=== PATIENT | female | born 2000 | race Caucasian/White ===

== ENCOUNTER 2018-02-16 10:56 | Emergency (ER) | payer OTHER ==
[2018-02-16] MEDS ORDERED: SODIUM CHLORIDE 0.9% 1,000 ML IV ONE (11:12)
[2018-02-16] MEDS ORDERED: METOCLOPRAMIDE 5 MG/ML 2 ML VIAL IVP STA (11:12)
[2018-02-16] MEDS ORDERED: FAMOTIDINE 20 MG/2 ML VIAL IV STA (11:13)
[2018-02-16] MEDS ORDERED: diphenhydrAMINE 50 MG/ML 1 ML VIAL IVP STA (11:13)
--- NOTE | 2018-02-16 11:18 | ED ---
Abdominal Pain HPI - General Chief Complaint: Abdominal Pain Stated Complaint: abd pain Time Seen by Provider: 02/16/18 11:06 Source: patient Mode of arrival: ambulatory Limitations: no limitations - History of Present Illness Initial Comments: 17-year-old female presenting with nausea, vomiting epigastric, abdominal pain that began suddenly last night at 2 AM, has been constant since, is not alleviated or exacerbated by anything, and was accompanied by nausea and vomiting. Patient states she was also feeling constipated and did a water enema at home which helped her have a small bowel movement. [facility] was seen at [facility] who was concern for bowel obstruction however the patient has no history of abdominal surgeries or bowel obstructions and she is currently passing gas and had a bowel movement yesterday. She denies any fevers but admits to chills. Denies any urinary symptoms, vaginal bleeding, vaginal discharge. Last menstrual period was one month prior. Patient admits to similar episodes in the past that resolved spontaneously. - Related Data Home Medications Medication Instructions Recorded Confirmed Amoxicillin 2 tab PO DAILY 09/12/15 09/12/15 Previous Rx's Medication Instructions Recorded predniSONE 40 mg PO DAILY #6 tab 09/12/15 Metoclopramide [Reglan] 10 mg PO Q8HR PRN #30 tab 02/16/18 Ondansetron Odt [Zofran ODT] 4 mg PO Q12HR PRN #20 tab 02/16/18 Allergies Allergy/AdvReac Type Severity Reaction Status Date / Time codeine AdvReac Unknown Verified 02/16/18 11:03 Review of Systems ROS Statement: Those systems with pertinent positive or pertinent negative responses have been documented in the HPI. Review of Systems Constitutional: Denies fever, chills Eyes: Denies change in vision, Denies pain Ears, nose, mouth, throat: Denies headaches, Denies sore throat Cardiovascular: Denies chest pain. Denies palpitations Respiratory: Denies shortness of breath, Denies cough Gastrointestinal: Positive abdominal pain. Positive nausea, vomiting. Negative diarrhea. Genitourinary: Denies hematuria, Denies infections Musculoskeletal: Denies pain, Denies swelling Integumentary: Denies rash Neurological: Denies headache, focal weakness, focal numbness Psychiatric: Denies anxiety, Denies depression Hematologic/Lymphatic: Denies easy bleeding or bruising ROS Other: All systems not noted in ROS Statement are negative. Past Medical History Past Medical History: No Reported History History of Any Multi-Drug Resistant Organisms: None Reported Past Surgical History: No Surgical Hx Reported Past Psychological History: No Psychological Hx Reported Smoking Status: Never smoker Past Alcohol Use History: None Reported Past Drug Use History: None Reported General Exam - General Exam Comments Initial Comments: General: Awake, alert, No acute Distress HENT: Normocephalic. Atraumatic Eyes: PERRL. EOMI. No scleral icterus. No injected conjunctiva Neck: Full ROM Chest/Lungs: Clear to auscultation bilaterally. No wheezing, rhonchi, or rales Cardiac: Regular rate, rhythm. No murmurs or rubs Abdomen/GI: Soft, nontender, nondistended. No rebound, guarding, or rigidity. Negative Kang's. Negative McBurney's. Musculoskeletal: Full ROM Skin: Warm, dry, intact Neurologic: A/Ox3, no weakness, no sensory deficit, no abdnormal gait, no coordination deficit Limitations: no limitations Course Vital Signs 02/16/18 02/16/18 11:01 12:23 Temperature 97.8 F Pulse Rate 68 67 Respiratory 20 18 Rate Blood Pressure 109/57 119/88 O2 Sat by Pulse 100 98 Oximetry Medical Decision Making - Medical Decision Making 16-year-old female presenting with abdominal pain nausea and vomiting. Initial exam the patient is awake, alert, no acute distress. VSS. Patient has no abdominal tenderness on exam however she was given Toradol and Zofran at [facility]. The patient had a UA done there which showed a large amount of ketones but was negative for infection. Discussed with the patient low likelihood of bowel obstruction and that the risk of radiation at this point outweighs the benefit as the patient is passing gas, had a bowel movement, and is currently tolerating by mouth. Bowel obstruction unlikely at this time. 1404 Patient's laboratory workup revealed a mild leukocytosis but otherwise is negative for acute process. A UA was not repeated here. Her ultrasound and x- ray showed no acute process. The patient in no distress while in the emergency department. At this time the patient's symptoms are likely due to gastroenteritis and a possible mild ileus that the symptoms resolved. I instructed her to continue taking the omeprazole that was prescribed to her at [facility]. I will send her home with prescriptions for Reglan and Zofran ODT. No further emergent workup indicated. The patient was given return to ED instructions. They were instructed to follow up with their primary care provider. Stable for discharge at this time. - Lab Data Result diagrams: 02/16/18 12:00 02/16/18 12:00 Lab Results 02/16/18 02/16/18 Range/Units 12:00 12:00 WBC 14.2 H (4.0-11.0) k/uL RBC 4.24 (3.80-5.40) m/uL Hgb 12.1 (11.4-16.0) gm/dL Hct 37.3 (34.0-46.0) % MCV 88.1 (80.0-100.0) fL MCH 28.6 (25.0-35.0) pg MCHC 32.4 (31.0-37.0) g/dL RDW 12.4 (11.5-15.5) % Plt Count 207 (150-450) k/uL Neutrophils % 92 % Lymphocytes % 4 % Monocytes % 3 % Eosinophils % 0 % Basophils % 0 % Neutrophils # 13.0 H (1.3-7.7) k/uL Lymphocytes # 0.6 L (1.0-4.8) k/uL Monocytes # 0.5 (0-1.0) k/uL Eosinophils # 0.0 (0-0.7) k/uL Basophils # 0.0 (0-0.2) k/uL Sodium 134 L (137-145) mmol/L Potassium 5.0 (3.5-5.1) mmol/L Chloride 106 (98-107) mmol/L Carbon Dioxide 19 L (22-30) mmol/L Anion Gap 9 mmol/L BUN 9 (7-17) mg/dL Creatinine 0.47 L (0.52-1.04) mg/dL Est GFR (CKD-EPI)AfAm >90 (>60 ml/min/1.73 sqM) Est GFR (CKD-EPI)NonAf >90 (>60 ml/min/1.73 sqM) Glucose 117 H (74-99) mg/dL Calcium 9.0 (8.4-10.2) mg/dL Total Bilirubin 1.1 (0.2-1.3) mg/dL Conjugated Bilirubin 0.0 (0.0-0.3) mg/dL Unconjugated Bilirubin 0.7 (0.0-1.1) mg/dL Delta Bilirubin 0.4 H (0.0-0.2) mg/dL AST 35 (14-36) U/L ALT 24 (9-52) U/L Alkaline Phosphatase 68 (38-126) U/L Total Protein 7.6 (6.3-8.2) g/dL Albumin 4.2 (3.5-5.0) g/dL Lipase 84 (23-300) U/L HCG, Qual Not Detected Disposition Clinical Impression: Nausea and vomiting Disposition: HOME SELF-CARE Condition: Good Instructions: Gastroenteritis (ED), Gastroenteritis (DC) Prescriptions: Metoclopramide [Reglan] 10 mg PO Q8HR PRN #30 tab PRN Reason: Nausea Ondansetron Odt [Zofran ODT] 4 mg PO Q12HR PRN #20 tab PRN Reason: Nausea Is patient prescribed a controlled substance at d/c from ED?: No
[2018-02-16 12:15] LABS: Basophils % (A) 0 %; Eosinophils % (A) 0 %; HCT 37.3 % (34.0-46.0); HGB 12.1 gm/dL (11.4-16.0); Lymphocytes # (A) 0.6 k/uL (1.0-4.8); Lymphocytes % (A) 4 %; MCH 28.6 pg (25.0-35.0); MCHC 32.4 g/dL (31.0-37.0); MCV 88.1 fL (80.0-100.0); Mean Platelet Volume 7.1; Monocytes # (A) 0.5 k/uL (0-1.0); Monocytes % (A) 3 %; Neutrophils % (A) 92 %; Platelet Count 207 k/uL (150-450); RBC 4.24 m/uL (3.80-5.40); RDW 12.4 % (11.5-15.5); WBC 14.2 k/uL (4.0-11.0)
[2018-02-16 12:23] LABS: ALT 24 U/L (9-52); AST 35 U/L (14-36); Albumin 4.2 g/dL (3.5-5.0); Alkaline Phosphatase 68 U/L (38-126); Anion Gap 9 mmol/L; Bilirubin, Delta 0.4 mg/dL (0.0-0.2); Bilirubin,Unconjugated 0.7 mg/dL (0.0-1.1); Blood Urea Nitrogen 9 mg/dL (7-17); Carbon Dioxide 19 mmol/L (22-30); Chloride 106 mmol/L (98-107); Glucose 117 mg/dL (74-99); Lipase 84 U/L (23-300); Sodium 134 mmol/L (137-145); Total Bilirubin 1.1 mg/dL (0.2-1.3); Total Protein 7.6 g/dL (6.3-8.2)
--- NOTE | 2018-02-16 13:00 | US ---
EXAMINATION TYPE: US gallbladder DATE OF EXAM: 02/16/2018 COMPARISON: Previous study dated 05/01/2013. CLINICAL HISTORY: Pain. N/V, epigastric pain EXAM MEASUREMENTS: Liver Length: 17.3 cm Gallbladder Wall: 0.2 cm CBD: 0.3 cm Right Kidney: 9.0 x 4.5 x 4.3 cm Pancreas: wnl Liver: wnl Gallbladder: wnl Evidence for sonographic Kang's sign: neg CBD: wnl Right Kidney: Medial anechoic lesion at hilum - 0.6 x 0.8 cm The pancreas is unremarkable. Liver is normal in size without biliary dilatation. The gallbladder is unremarkable. The gallbladder wall measures 2 mm. The distal common hepatic duct m easures 3 mm. There is no sonographic Kang's sign. The right kidney is unremarkable. Lesion seen in the hilum is believed to represent an extrarenal pel vis. IMPRESSION: NORMAL ORBITAL QUADRANT ULTRASOUND.
[2018-02-16 13:41] LABS: HCG,Qualitative Serum Not Detected
--- NOTE | 2018-02-16 13:57 | XR ---
EXAMINATION TYPE: XR abdomen 1V , 2 VIEWS DATE OF EXAM ORDERED: 02/16/2018 HISTORY: Pain. COMPARISON: Previous study dated 04/30/2013. FINDINGS: The lung bases are clear. Within the abdomen, the abdominal gas pattern is normal. There is no evidence of obstruction or free air. No unusual calcifications are seen. There is a gentle levoscoliosis. IMPRESSION: NO ACUTE INTRA-ABDOMINAL ABNORMALITY.
[2018-02-16 14:50] VITALS: BP 103/81; PULSE 89; RESP 98; TEMP 98.8
== END 2018-02-16 14:28 | disposition home or self-care (01) ==
LOC: EC 10:56
DX: R11.2 Nausea with vomiting, unspecified (principal); R10.13 Epigastric pain; K59.00 Constipation, unspecified; D72.829 Elevated white blood cell count, unspecified; Z88.5 Allergy status to narcotic agent
CPT/HCPCS: 99284; 96374; 96375 ×2; 96361; 36415; 80048; 80076; 83690; 85025; 84703; 74018; 76705; J1200; J2765